=== PATIENT | male | born 1955 | race Caucasian/White ===

== ENCOUNTER → 2017-02-02 | Outpatient (REF) | payer OTHER | LOC: M LAB REF 17:22 | PROVIDERS: ATTEND Surgery | DX: D48.5 Neoplasm of uncertain behavior of skin (principal) ==

== ENCOUNTER → 2017-09-22 | Outpatient (CLI) | payer OTHER | LOC: M RAD 13:35 | DX: I87.311 Chronic venous hypertension (idiopathic) with ulcer of right lower extremity (principal) | CPT/HCPCS: 93971 ==

== ENCOUNTER → 2018-02-08 | Outpatient (CLI) | payer OTHER ==
[2018-02-08 12:06] LABS: HEMATOCRIT 44.3 % (42.0-52.0); HEMOGLOBIN 14.7 g/dl (13.5-17.5); MEAN CORPUSCULAR HEMOGLOBIN 29.6 pg (27.0-33.0); MEAN CORPUSCULAR HGB CONC 33.2 g/dl (32.0-36.5); MEAN CORPUSCULAR VOLUME 89.1 fl (80.0-96.0); PLATELET COUNT, AUTOMATED 234 10^3/uL (150-450); RED BLOOD COUNT 4.97 10^6/uL (4.30-6.10); RED CELL DISTRIBUTION WIDTH 13.3 % (11.5-14.5); WHITE BLOOD COUNT 7.8 10^3/uL (4.0-10.0)
[2018-02-08 12:17] LABS: PROTHROMBIN TIME 13.3 SECONDS (12.1-14.4)
[2018-02-08 12:34] LABS: ERYTHROCYTE SEDIMENTATION RATE 9 mm/hr (0-20)
[2018-02-08 13:42] LABS: ALBUMIN/GLOBULIN RATIO 1.11 (1.00-1.93); ALKALINE PHOSPHATASE 71 U/L (45-117); ALT/SGPT 40 U/L (12-78); ANION GAP 9 MEQ/L (8-16); AST/SGOT 22 U/L (7-37); BILIRUBIN,TOTAL 0.6 MG/DL (0.2-1.0); BLOOD UREA NITROGEN 23 MG/DL (7-18); CALCIUM LEVEL 8.5 MG/DL (8.8-10.2); CARBON DIOXIDE LEVEL 25 MEQ/L (21-32); CHLORIDE LEVEL 105 MEQ/L (98-107); CREATININE FOR GFR 0.95 MG/DL (0.70-1.30); GLOMERULAR FILTRATION RATE > 60.0 (>49); GLUCOSE, FASTING 131 MG/DL (70-100); POTASSIUM SERUM 4.5 MEQ/L (3.5-5.1); SODIUM LEVEL 139 MEQ/L (136-145); TOTAL PROTEIN 7.6 GM/DL (6.4-8.2)
== END ==
LOC: M LAB 11:23
DX: Z01.818 Encounter for other preprocedural examination (principal); M17.11 Unilateral primary osteoarthritis, right knee; R73.03 Prediabetes; M51.34 Other intervertebral disc degeneration, thoracic region; J84.10 Pulmonary fibrosis, unspecified
CPT/HCPCS: 71046

== ENCOUNTER 2018-03-15 07:30 | Inpatient (IN) | payer OTHER ==
--- NOTE | 2018-03-07 16:12 | HPE ---
DATE OF ADMISSION: 03/15/2017 CHIEF COMPLAINT: Right knee pain. HISTORY OF PRESENT ILLNESS: This is a pleasant 62-year-old male with progressively worsening right knee pain and stiffness. He has failed to improve with conservative treatment. He has elected for surgery for his continued symptoms. He has pain with weightbearing activities and his activities of daily living. X-rays of his knee are notable for advanced osteoarthritis of the right knee joint. He has consented for a right total knee arthroplasty by Dr. Angelo Mondragon. Medical optimization was performed by Dr. Ramirez's office. ALLERGIES: None. CURRENT MEDICATIONS: - lisinopril/HCTZ 20/12.5 once a day - amlodipine 5 mg a day - metformin 500 mg once a day PAST MEDICAL HISTORY: Includes hypertension and prediabetes. PAST SURGICAL HISTORY: Includes a right hip resurfacing [place] [address] Davidson. 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 He does not smoke or drink alcohol. FAMILY HISTORY: Noncontributory. REVIEW OF SYSTEMS: This patient denies chest pain, heart palpitations, cough, wheezing, difficulty breathing and shortness of breath. He denies abdominal pain, nausea, vomiting, diarrhea or constipation. He denies recent upper respiratory infection or urinary tract infection symptoms. He does complain of persistent pain in the right knee and pain with weightbearing activities in the right knee. PHYSICAL EXAMINATION: GENERAL: He is a well-nourished, well-developed, in no acute distress, alert male. He ambulates with a mild limp favoring the right lower extremity. He is not using assistive devices. VITAL SIGNS: He is 71-1/4 inches tall. He weighs 349.4 pounds with a temperature of 97.8, blood pressure 132/68, pulse 66 and respirations of 12. NECK: Supple without adenopathy or jugular venous distension. There were no carotid bruits appreciated upon auscultation. LUNGS: Clear to auscultation without rales or wheeze throughout. HEART: Regular rate and rhythm. ABDOMEN: Bowel sounds were present. EXTREMITIES: Examination of the knee revealed intact skin. He had decreased range of motion secondary to pain and stiffness. The limb was neurovascularly intact. LABORATORY DATA: Chest x-ray showed old granulomatous changes with no acute cardiopulmonary disease processes. EKG showed sinus rhythm at 71 beats per minute. Prothrombin time was 13.3, INR 1.00. CBC was within normal limits. Glucose 131, BUN 23, creatinine 0.95, sodium 139, potassium 4.5. IMPRESSION: Symptomatic osteoarthritis of the right knee joint. PLAN: Consented for a right total knee arthroplasty by Dr. Angelo Mondragon.
[~2018-03-15] VITALS: Ht 182.9 cm; Wt 158.3 kg
[~2018-03-15 07:30] MED LIST: AMLO10TA5 PO; AMLO5TAB6 PO; LISI10TA2 PO; LISI10TA4 PO; METF500T13 PO
--- NOTE | 2018-04-11 14:24 | HPE ---
DATE OF ADMISSION: 04/12/2018 CHIEF COMPLAINT: Right knee pain. HISTORY OF PRESENT ILLNESS: Earl is a pleasant, 62-year-old male with progressively worsening right knee pain and stiffness. He has failed to improve with conservative treatment. He has elected for surgery for his continued symptoms. He has pain with weightbearing activities and his activities of daily living. X-rays of his knee are notable for advanced osteoarthritis of the right knee joint. He has consented for a right total knee arthroplasty by Dr. Angelo Mondragon. Medical optimization was performed by Dr. Ramirez's office. ALLERGIES: None. CURRENT MEDICATIONS: - lisinopril/HCTZ 40 mg/25 mg once a day - amlodipine 5 mg once a day - metformin 500 mg one tablet twice a day PAST MEDICAL HISTORY: Includes diabetes and hypertension. PAST SURGICAL HISTORY: Includes right hip resurfacing in 2005. 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 FAMILY HISTORY: Noncontributory. REVIEW OF SYSTEMS: This patient denies chest pain, heart palpitations, cough, wheezing, difficulty breathing and shortness of breath. He denies abdominal pain, nausea, vomiting, diarrhea or constipation. He denies recent upper respiratory infection or urinary tract infection symptoms. He does complain of persistent pain in the right knee. PHYSICAL EXAMINATION: General: He is a well-nourished, well-developed in no acute distress, alert male patient who walks with a moderate limp favoring the right lower extremity. He does not use assistive devices. Vital signs: He is 5 foot 10 inches, weighs 341.2 pounds with a temperature of 97.2, blood pressure 140/86, pulse of 80, respirations of 16. Neck was supple without adenopathy or jugular venous distension. There were no carotid bruits appreciated upon auscultation. Lungs were clear to auscultation without rales or wheeze throughout. Heart: Regular rate and rhythm. Abdomen: Bowel sounds were present. Extremities: Examination of the knee revealed intact skin. He had decreased range of motion secondary to pain and stiffness. The limb was neurovascularly intact. LABORATORY DATA: EKG showed sinus rhythm at 71 beats per minute. Chest x-ray showed old granulomatous changes but no acute or active disease. Prothrombin time 13.3, INR 1.00. CBC within normal limits. Sedimentation rate 9, glucose 131, BUN 23, creatinine 0.95, sodium 139, potassium 4.5. IMPRESSION: Symptomatic osteoarthritis of the right knee joint. PLAN: Consented for a right total knee arthroplasty by Dr. Angelo Mondragon.
[2018-04-12] MEDS ORDERED: LIDOCAINE 1% MDV 20ML VIAL SQ PRN (06:00)
[2018-04-12] MEDS ORDERED: ACETAMINOPHEN 500 MG TAB PO ONE (07:00)
[2018-04-12] MEDS ORDERED: LR 1,000 ML IV ONE (07:00)
[2018-04-12] MEDS ORDERED: ceFAZolin SOD 1 GM in D5W MINI-BAG PLUS 50 ML IV ONE (07:40)
[2018-04-12] MEDS ORDERED: ceFAZolin 1GM INJ (J0690 PER 500MG) As Ordered ONE ×2 (11:01→15:08)
[2018-04-12] MEDS ORDERED: dexameTHASONE 4 MG/ML 1ML VIAL (J1100) As Ordered ONE (13:30)
[2018-04-12] MEDS ORDERED: ONDANSETRON 4MG/2ML VIAL (J2405) As Ordered ONE (13:30)
[2018-04-12] MEDS ORDERED: MIDAZOLAM INJ 2 MG/2 ML VIAL (J2250) As Ordered ONE ×2 (13:32→13:34)
[2018-04-12] MEDS ORDERED: PROPOFOL 500 MG/50 ML VIAL As Ordered ONE (13:32)
[2018-04-12] MEDS ORDERED: LIDOCAINE 2% INJ 100 MG/5 ML SDV (FOR ANES.) As Ordered ONE (13:32)
[2018-04-12] MEDS ORDERED: fentaNYL 100 MCG/2 ML INJECTION (J3010) As Ordered ONE (13:34)
[2018-04-12] MEDS ORDERED: BUPIVACAINE HCL 0.25% 30 ML VIAL As Ordered ONE ×2 (13:44→15:08)
[2018-04-12] MEDS ORDERED: BUPIVACAINE HCL 0.25% 10 ML VIAL As Ordered ONE (13:44)
[2018-04-12] MEDS: fentaNYL 100 MCG/2 ML INJECTION (J3010) IV SCH ×2 (13:49→13:57)
[2018-04-12] MEDS: MIDAZOLAM INJ 2 MG/2 ML VIAL (J2250) IV SCH ×3 (13:49→14:18)
[2018-04-12] MEDS ORDERED: EPINEPHrine INJ 1 MG/ML 1ML AMP As Ordered ONE (15:08)
[2018-04-12] MEDS ORDERED: TRANEXAMIC ACID 100 MG/ML 10ML VIAL As Ordered ONE (15:08)
[2018-04-12] MEDS ORDERED: BUPIVACAINE LIPOSOME/PF 1.3% 20ML VIAL (13.3MG/ML)(EXPAREL)(C9290 PER1MG) As Ordered ONE (15:08)
[2018-04-12] MEDS ORDERED: fentaNYL 250 MCG/5 ML INJECTION (J3010) As Ordered ONE (15:49)
[2018-04-12] MEDS ORDERED: ROCURONIUM BROMIDE 50 MG/5 ML VIAL As Ordered ONE (16:49)
[2018-04-12] MEDS ORDERED: GLYCOPYRROLATE INJ 0.2 MG/ML 2 ML VIAL As Ordered ONE (17:14)
[2018-04-12] MEDS ORDERED: NEOSTIGMINE 10 MG/10 ML VIAL (J2710) As Ordered ONE (17:14)
[2018-04-12] MEDS ORDERED: FLEET ENEMA PR PRN (18:30)
[2018-04-12] MEDS ORDERED: HYDROMORPHONE HCL 0.5 MG/ 0.5 ML SYRINGE (J1170 PER 1) IV PRN (18:30)
[2018-04-12] MEDS: PERCOCET 5MG/325MG TAB PO PRN ×2 (18:30→19:22)
[2018-04-12] MEDS ORDERED: ACETAMINOPHEN TAB 650MG DOSE (2X325MG) PO PRN (18:30)
[2018-04-12] MEDS ORDERED: MEPERIDINE INJ 25 MG/ML VIAL (J2175) IV PRN (18:30)
[2018-04-12] MEDS: fentaNYL 100 MCG/2 ML INJECTION (J3010) IV PRN ×8 (18:30→19:53)
[2018-04-12] MEDS ORDERED: METOCLOPRAMIDE INJ 10MG/2ML VIAL (J2765) IV PRN (18:30)
[2018-04-12] MEDS ORDERED: LR 1,000 ML IV SCH ×2 (18:30)
[2018-04-12] MEDS ORDERED: ONDANSETRON 4MG/2ML VIAL (J2405) IV PRN (18:30)
--- NOTE | 2018-04-12 19:25 | REP ---
RIGHT KNEE, TWO VIEWS: Two views of the right knee are performed. There is a total knee prosthesis in good position. Osseous structures are intact and well aligned. Metallic skin codi are seen anteriorly. Electronically Signed by Rufus Aguilar MD 04/12/2018 08:24 P
[2018-04-12 20:15] VITALS: BP 172/81
[2018-04-12 20:45] VITALS: BP 169/97
--- NOTE | 2018-04-12 21:18 | CR ---
DATE OF CONSULTATION: 04/12/2018 This is a 62-year-old male with a past medical history of hypertension and diabetes, history of right knee osteoarthritis who presents to this hospitalization for right total knee replacement which was done today by Dr. Mondragon. Reason for medical consultation is postoperative medical management. Patient is doing well at this time and denies any chest pain, shortness of breath, abdominal pain, nausea, vomiting or headache. PAST MEDICAL HISTORY: Hypertension and diabetes. PAST SURGICAL HISTORY: Right hip resurfacing in 2005. He has no known drug allergies. FAMILY HISTORY: Noncontributory. SOCIAL HISTORY: Patient denies any tobacco, alcohol or illicit drugs. MEDICATIONS AT HOME: Amlodipine 5 mg orally daily, lisinopril/hydrochlorothiazide 10/12.5 one tab orally daily, Metformin 500 mg orally daily. REVIEW OF SYSTEMS: Negative for all 10 major systems except for what was mentioned in the HPI. VITALS: Blood pressure 168/95, heart rate 78 and regular, respiratory rate 16, temperature 98.2, oxygen saturation 93% on 3 liters nasal cannula. Head is atraumatic, normocephalic. Neck is supple with no JVD. Lungs are clear to auscultation S1, S2 audible. No murmurs appreciated. Abdomen is soft and positive bowel sounds. No pedal edema. Neurologic examination, patient is awake and alert times three. LABS: There are no labs to address at this time. IMPRESSION: 1. Right total knee replacement. 2. Hypertension. 3. Diabetes. PLAN: At this time the patient has no need for acute medical intervention. His blood pressure is elevated but he did not take his blood pressure medications today so recommendation will be administer his blood pressure medications at this time and his diet order and his pain management I will defer to orthopedics. Recommend CBC and a BMP in the morning and will continue following his care alongside orthopedics. Patient is pain free at this time.
[2018-04-12 21:45] VITALS: BP 174/84
[2018-04-12 22:45] VITALS: BP 135/76
[2018-04-12] MEDS: ceFAZolin SOD 1 GM in D5W MINI-BAG PLUS 50 ML IV SCH (23:17)
[2018-04-12 23:45] VITALS: BP 161/76
[2018-04-13] MEDS: HYDROMORPHONE HCL 0.5 MG/ 0.5 ML SYRINGE (J1170 PER 1) IV PRN ×2 (01:37→05:22)
[2018-04-13 02:00] VITALS: BP 146/83
[2018-04-13] MEDS: ceFAZolin SOD 1 GM in D5W MINI-BAG PLUS 50 ML IV SCH ×2 (05:22→10:20)
[2018-04-13 06:00] VITALS: BP 164/98
[2018-04-13 06:54] LABS: BASO % 0.2 % (0.0-1.0); EOS % 0.2 % (0.0-3.0); HEMATOCRIT 35.8 % (42.0-52.0); LYMPH # 1.9 10^3/uL (1.5-4.5); LYMPH % 15.4 % (24.0-44.0); MEAN CORPUSCULAR HEMOGLOBIN 29.8 pg (27.0-33.0); MEAN CORPUSCULAR HGB CONC 33.5 g/dl (32.0-36.5); MEAN CORPUSCULAR VOLUME 88.8 fl (80.0-96.0); MONO # 1.1 10^3/uL (0.0-0.8); MONO % 8.4 % (0.0-5.0); NEUTROPHILS # 9.4 10^3/uL (1.8-7.7); NEUTROPHILS % 75.5 % (36.0-66.0); PLATELET COUNT, AUTOMATED 234 10^3/uL (150-450); RED BLOOD COUNT 4.03 10^6/uL (4.30-6.10); WHITE BLOOD COUNT 12.4 10^3/uL (4.0-10.0)
[2018-04-13 07:22] LABS: BLOOD UREA NITROGEN 17 MG/DL (7-18); CALCIUM LEVEL 7.8 MG/DL (8.8-10.2); CARBON DIOXIDE LEVEL 26 MEQ/L (21-32); CHLORIDE LEVEL 102 MEQ/L (98-107); CREATININE FOR GFR 0.97 MG/DL (0.70-1.30); GLOMERULAR FILTRATION RATE > 60.0 (>49); GLUCOSE, FASTING 178 MG/DL (70-100); POTASSIUM SERUM 4.2 MEQ/L (3.5-5.1); SODIUM LEVEL 134 MEQ/L (136-145)
[2018-04-13] MEDS ORDERED: metFORMIN (GLUCOPHAGE) 500 MG TAB PO SCH (08:00)
[2018-04-13 08:23] VITALS: BP 164/98
[2018-04-13] MEDS: PERCOCET 5MG/325MG TAB PO PRN ×2 (08:24→14:50)
[2018-04-13] MEDS ORDERED: XARE10TA PO (08:30)
[2018-04-13] MEDS ORDERED: PERC5TAB12 PO (08:30)
[2018-04-13] MEDS ORDERED: LISINOPRIL 10 MG TAB PO SCH (09:00)
[2018-04-13] MEDS ORDERED: MOM 30ML SUSPENSION UDC PO SCH (09:00)
[2018-04-13] MEDS ORDERED: hydroCHLOROthiazide 12.5 MG CAPSULE PO SCH (09:00)
[2018-04-13] MEDS ORDERED: MIRALAX *UNIT DOSE* 17GM PACKET PO SCH (09:00)
[2018-04-13] MEDS ORDERED: SENOKOT S TAB PO SCH (09:00)
[2018-04-13] MEDS ORDERED: amLODIPine 5 MG TAB PO SCH (09:00)
[2018-04-13 14:00] VITALS: BP 158/78
[2018-04-13] MEDS ORDERED: RIVAROXABAN 10 MG TAB (XARELTO) PO SCH (18:00)
--- NOTE | 2018-04-14 17:03 | RO ---
DATE OF PROCEDURE: 04/12/2018 PREPROCEDURE DIAGNOSIS: Right knee severe degenerative arthritis. POSTPROCEDURE DIAGNOSIS: Right knee severe degenerative arthritis. OPERATIVE PROCEDURE: Right total knee arthroplasty using a size 7 cruciate retaining cemented femoral component with a size 8 tibial tray and a 6 mm rotating platform polyethylene insert, 41 mm polyethylene button. All components were cemented. Prosthesis made by [employer]. It was an Attune knee. SURGEON: Josh Mondragon MD CHILD ADOLESCENT CARE: DARIAN Arrieta ANESTHESIA: Right femoral nerve block and then a general endotracheal tube anesthetic. COMPLICATIONS: None. ESTIMATED BLOOD LOSS: 20 mL SPECIMENS: Joint surface. DESCRIPTION OF PROCEDURE: Antibiotics were given intravenously preoperatively and a successful right femoral nerve block anesthetic was established, then an attempted spinal was tried, but then I elected to go with general endotracheal tube anesthetic. A tourniquet was placed right upper thigh and not inflated. The right lower extremity was carefully prepped and draped in the usual sterile fashion and elevated. After appropriate time-out the tourniquet was inflated to 275 mmHg. Longitudinal incision was made for a medial parapatellar approach to the knee. Bovie cautery was used to coagulate the crossing vessels. Subperiosteal dissection around the proximal, medial and lateral tibial plateau was performed. Large loose bodies were removed at this point. Synovectomy performed at the anterior aspect of the distal femur and then we everted the patella and flexed the knee, placed the drill down the center of the femoral canal, followed by the intramedullary caty and distal femoral cutting jig set at a 5 degree valgus cut for a right knee. We took an additional 2 mm because he had a significant flexion contracture. The distal femoral cut was then performed and the AP sizing jig was applied, measured for a size 7. The 3 degree external rotation was dialed in and a pin was placed, four-in-one block applied. Then the anterior posterior chamfer cuts performed taking great care to protect the surrounding soft tissues. We then used the jig for the notchplasty and then exposed the proximal tibia. Used the extramedullary alignment jig to estimate being parallel to the mechanical axis referencing off the medial tibia condyle. The block was pinned into position. Secondary check of the extramedullary caty confirmed we appeared to be parallel to the mechanical axis and then the proximal tibial osteotomy was then performed. . Laminar docket specialist was then placed laterally and we performed a completion medial meniscectomy with debridement of a large posterior medial osteophytes. We then placed the laminar docket specialist medially and performed a completion lateral meniscectomy with debridement of the large posterolateral osteophytes. The spacer blocks were then applied and the 6 mm seemed to fit the best with good stability, with good symmetry in the flexion and extension gaps. We then exposed the proximal tibia, sized for a size #8 tray which was pinned into position followed by the reamer and broach, trial 6 mm polyethylene was applied, followed by the size 7 femoral component and then the knee was brought into extension, the patella everted and patellar osteotomy performed and lug holes drilled after sizing for a 41 button. The trial was applied and the patellofemoral tracking was anatomic. We then drilled the lug holes for the femur and removed all the trial components, copiously pulsatile lavage irrigated out the knee joint and placed Exparel in the subperiosteal tissues around the distal femur and the proximal tibia. Then Mr. Daniels mixed the cement on the back table as I prepared the bony surfaces for cementing with a copious amount of pulsatile lavage irrigant solution. Mr. Daniels was also critical to the success of this very difficult operation in this morbidly obese patient with a high BMI, helping with manipulating the knee, helping to apply appropriate soft tissue retraction so I could perform the operation smoothly and efficiently and safely. He also helped close the wound, prepare the patient, otherwise. Once the cement was mixed, we then cemented the tibial tray, removed excess cement, and placed the polyethylene. Cemented the femoral component, removed excess cement and brought the knee into extension. Cemented the patellar button, removed excess cement and held it with a clamp with the knee in extension until the cement had hardened. At this point we then copiously pulsatile lavage irrigated out the knee joint once again as we were waiting for the cement to harden. We then placed Tranexamic acid in the knee, then closed the apex of the arthrotomy with two #1 PDS sutures, and one at the medial parapatellar areas, then a running double arm #1 Stratafix was used to close the capsule. Then the tourniquet was released. We irrigated between layers and then closed the deep subdermal tissues with interrupted #2-0 PDS sutures, skin was closed with saples, covered by a Optifoam dressing and dry sterile bulky dressing. Then, he was awakened from general endotracheal anesthesia after having tolerated the procedure well and transferred to the recovery room in stable condition. There were no intraoperative complications.
--- NOTE | 2018-04-18 16:22 | DSES ---
DATE OF ADMISSION: 04/12/2018 DATE OF DISCHARGE: 04/13/2018 ATTENDING PHYSICIAN: Dr. Mondragon ADMISSION DIAGNOSIS: Right knee severe degenerative arthritis. OTHER DIAGNOSES: 1. Diabetes. 2. Hypertension. DISCHARGE DIAGNOSIS: Right knee severe degenerative arthritis, status post right total knee arthroplasty. HISTORY: The patient is a 62-year-old male that had progressively worsening right knee pain and stiffness. He failed to improve with conservative measures. He continued to have symptoms with weightbearing activities and activities of daily living. He consented for an elective right total knee arthroplasty with Dr. Mondragon for his continued symptoms. OPERATION PERFORMED: Right total knee arthroplasty. HOSPITAL COURSE: The patient underwent a right total knee arthroplasty with a right femoral nerve block and general anesthesia. Surgery was uneventful and his hospital course was without complication. He was up with physical therapy per their protocol, weightbearing as tolerated on the right lower extremity. The patient was discharged on oral pain medications and will resume his preoperative medications and diet. He will use his thromboembolic-deterrent stockings and take his anticoagulant as directed to prevent deep venous thrombosis. He will followup in our office in 12-14 days for a wound check and staple removal. He is encouraged to contact our office sooner if there is any increase in pain, drainage, redness, numbness or tingling in the extremity, fever greater than 101 degrees, or any other concerns. Please see the medical record for additional details.
== END 2018-04-13 15:50 | disposition home or self-care (01) | DRG 470 ==
LOC: M OR 04-12 10:27 → M MS5PR 04-12 20:43
PROVIDERS: ADMIT Orthopaedic Surgery; ATTEND Orthopaedic Surgery
PROC: 0SRC0J9 Replacement of Right Knee Joint with Synthetic Substitute, Cemented, Open Approach (ICD-10-PCS; principal; 2018-04-12 14:40)
DX: M17.11 Unilateral primary osteoarthritis, right knee (principal); Z68.42 Body mass index [BMI] 45.0-49.9, adult; I10 Essential (primary) hypertension; E66.01 Morbid (severe) obesity due to excess calories; G47.33 Obstructive sleep apnea (adult) (pediatric); E11.9 Type 2 diabetes mellitus without complications; Z79.84 Long term (current) use of oral hypoglycemic drugs; Z79.899 Other long term (current) drug therapy

== ENCOUNTER → 2018-03-16 | Outpatient (CLI) | payer OTHER ==
--- NOTE | 2018-03-21 15:38 | SLEEPCENT ---
DATE OF PROCEDURE: 03/16/2018 ORDERED BY: LIANA Montanez Nocturnal polysomnography was performed for evaluation of sleep physiology in this patient with a history of hypertension and diabetes. 7 hours and 35 minutes of data were reviewed. There were 266 minutes of sleep identified. Sleep latency was prolonged at 80 minutes. Rapid eye movement (REM) latency was prolonged at 177 minutes. Sleep architecture showed initial poor progression with fragmentation. There were two REM cycles noted. Overall sleep efficiency was 59%. The electrocardiogram showed a sinus rhythm with an average heart rate of 56 beats per minute. Rate ranged 45-80. EEG showed normal waveforms for awake and sleep stages. No focal events were identified. There were 132 respiratory events identified of 10 seconds in duration or greater for an apnea-hypopnea index of 29.7. The events were primarily obstructive, not exclusive to sleep stage nor body posture. Arousals from respiratory events occurred 4.5 times per hour and oxygen desaturations were seen into the 70s. There was some activity in the limb leads but arousals were few with two per hour. IMPRESSION: Severe obstructive sleep apnea syndrome (G47.33). Apnea-hypopnea index 29.7. RECOMMENDATIONS The patient should be encouraged to return to the sleep disorder center for pressure therapy. In the interim alcohol and sedative avoidance should be practiced and caution exercised during the operation of motor vehicles.
== END ==
LOC: M SLEEP 19:37
PROVIDERS: ATTEND Nurse Practitioner Family
DX: Z01.818 Encounter for other preprocedural examination (principal)

== ENCOUNTER → 2018-03-25 | Outpatient (CLI) | payer OTHER ==
[~2018-03-25] MED LIST changes: +PERC5TAB12 PO; +XARE10TA PO
--- NOTE | 2018-03-28 13:03 | SLEEPCENT ---
DATE OF STUDY: 03/25/2018 ORDERING PROVIDER: LIANA Montanez Nocturnal polysomnography was performed for the titration of pressure therapy in this patient with severe obstructive sleep apnea syndrome. Apnea-hypopnea index 29.7. For testing, the patient was fit with a ResMed AirFit F20 full face mask of large size. 4 cm of water pressure were applied to the circuit, and the lights were extinguished. 7 hours and 1 minute of data were reviewed. There were 105 minutes of sleep identified. Sleep latency was prolonged at 35 minutes. The patient did not achieve rapid eye movement (REM) sleep. Overall sleep efficiency was quite low at 25.4%. The patient remained awake from midnight to 1:30. Electrocardiogram (EKG) showed a sinus rhythm with an average heart rate of 60 beats per minute. Electroencephalogram (EEG) showed reasonably normal waveforms for awake and sleep. On review of the records, the patient was initially started on a nasal delivery device. After a few hours, was changed to full face mask, and best sleep was seen on continuous positive airway pressure (CPAP) at a pressure of +8, with which the patient was able to achieve stage II sleep with minimal snoring. No significant oxygen desaturation. Further titration became difficult, as the patient awoke at 2:30 and remained awake for the remainder of the time. Some limb activity was again noted. Arousals from limb events were more frequent on the study at 8 per hour. IMPRESSION: Obstructive sleep apnea syndrome (G47.33). RECOMMENDATION: Initiation of pressure therapy at 8 cm of water delivered via full face mask may be reasonable. However, given the difficulty with titration, close clinical followup will be necessary, and repeat titration may be needed once the patient has an opportunity to accommodate to the device. MTDD
== END ==
LOC: M SLEEP 20:00
PROVIDERS: ATTEND Nurse Practitioner Family
DX: G47.33 Obstructive sleep apnea (adult) (pediatric) (principal)

== ENCOUNTER → 2018-06-21 | Outpatient (CLI) | payer OTHER ==
[2018-06-21 11:42] LABS: HEMATOCRIT 40.2 % (42.0-52.0); HEMOGLOBIN 13.4 g/dl (13.5-17.5); MEAN CORPUSCULAR HEMOGLOBIN 29.8 pg (27.0-33.0); MEAN CORPUSCULAR HGB CONC 33.3 g/dl (32.0-36.5); MEAN CORPUSCULAR VOLUME 89.5 fl (80.0-96.0); PLATELET COUNT, AUTOMATED 232 10^3/uL (150-450); RED BLOOD COUNT 4.49 10^6/uL (4.30-6.10); WHITE BLOOD COUNT 6.6 10^3/uL (4.0-10.0)
[2018-06-21 11:52] LABS: INR 1.08; PROTHROMBIN TIME 14.1 SECONDS (12.1-14.4)
--- NOTE | 2018-06-21 11:54 | REP ---
Chest two views HISTORY: Preop Comparison: 02/08/2018 Calcified granuloma are present in the right upper and left lower lobes. The heart is normal in size. The pulmonary vasculature is normal in appearance. Degenerative change is present in the thoracic spine. IMPRESSION: Old granulomatous disease. Electronically Signed by Alber Alexis MD 06/21/2018 11:46 A
[2018-06-21 12:02] LABS: ERYTHROCYTE SEDIMENTATION RATE 11 mm/hr (0-20)
[2018-06-21 12:30] LABS: ALBUMIN 3.8 GM/DL (3.2-5.2); ALT/SGPT 36 U/L (12-78); BILIRUBIN,TOTAL 0.4 MG/DL (0.2-1.0); BLOOD UREA NITROGEN 17 MG/DL (7-18); CALCIUM LEVEL 8.7 MG/DL (8.8-10.2); CARBON DIOXIDE LEVEL 24 MEQ/L (21-32); CHLORIDE LEVEL 105 MEQ/L (98-107); CREATININE FOR GFR 1.06 MG/DL (0.70-1.30); GLOMERULAR FILTRATION RATE > 60.0 (>49); GLUCOSE, FASTING 155 MG/DL (70-100); POTASSIUM SERUM 4.3 MEQ/L (3.5-5.1); SODIUM LEVEL 139 MEQ/L (136-145); TOTAL PROTEIN 7.3 GM/DL (6.4-8.2)
--- NOTE | 2018-06-22 00:43 | ECGEPIP ---
Stationary ECG Study [facility] Test Date: 2018-06-21 Pat Name: KAILEY PEMBERTON Department: Room: - Gender: M Intermediate Designer: : [id number] Requested By: Josh Stephens Order Number: [id number] Reading MD: Gus Bender Measurements Intervals [place] Rate: 78 P: 35 MI: 195 QRS: -18 QRSD: 98 T: 62 QT: 389 QTc: 446 Interpretive Statements SINUS RHYTHM Low QRS complex voltage in the limb leads Inferior Q waves of uncertain significance Electronically Signed On 06-22-2018 0:42:51 EDT by Gus Bender
== END ==
LOC: M LAB 10:58
PROVIDERS: ATTEND Orthopaedic Surgery
DX: J84.10 Pulmonary fibrosis, unspecified (principal); M17.12 Unilateral primary osteoarthritis, left knee; Z01.812 Encounter for preprocedural laboratory examination

== ENCOUNTER 2018-07-07 10:30 | Inpatient (IN) | payer OTHER ==
--- NOTE | 2018-07-03 12:49 | HPE ---
DATE OF ADMISSION: 07/07/2018 ATTENDING PHYSICIAN: Dr. Josh Mondragon HISTORY OF PRESENT ILLNESS: This is a pleasant male with continuing symptomatic left knee osteoarthritis. He has consented for a left total knee arthroplasty per Dr. Angelo Mondragon. Medical optimization was completed with Dr. Ramirez. Per patient, he was cleared, although I am awaiting official documentation. X-rays are consistent with advanced osteoarthritis. ALLERGIES: None known to drugs. MEDICATIONS (List includes): - lisinopril 40 mg - amlodipine besylate 10 mg - metformin HCl 500 mg - oxycodone/acetaminophen 5/325 MEDICAL PROBLEM LIST (Includes): 1. Essential hypertension. 2. Symptomatic left total knee arthroplasty. PAST SURGICAL HISTORY: 1. Right hip resurfacing procedure. 2. Right total knee arthroplasty, date of surgery 04/12/2018. SOCIAL HISTORY: Denies smoking, ethanol intake or illicit drugs. FAMILY HISTORY: Noncontributory. REVIEW OF SYSTEMS: Denies chest pain, shortness of breath, dyspnea on exertion, fever, chills, malaise, upper respiratory or urinary tract symptoms. LABS: Reviewed. Hemoglobin 13.4. Hematocrit 40.2. Glucose 155. Calcium 8.7 as acquired on 06/21/2018. EKG read by Dr. Gus Bender showed sinus rhythm. Chest x-ray, service date 06/21/2018, showed old granulomatous disease as read by Dr. Alexis. PHYSICAL EXAMINATION: Vitals: Blood pressure (BP) 132/68. Pulse 66. Temperature 97.8. Height 71.25. Weight 349 pounds 4 ounces. Body mass index (BMI) 48.4. Respirations 12. The patient is ambulating without overt antalgia assistance favoring. Left knee is not effused, ecchymotic or erythematous and benign, noninfectious looking. Bilateral lower extremity skin is intact, benign, noninfectious looking. Compartments are supple, soft, nontender to palpation and grossly intact to light touch. Left hip range of motion is not irritable or limited due to internal and external range of motion. Abdomen soft, nontender times four. Chest rises symmetrically. Regular rate and rhythm. Lungs: Clear to auscultation. Neck: Supple. Negative jugular venous distention (JVD) or bruits. Normocephalic. IMPRESSION: 1. Left knee symptomatic tricompartmental osteoarthritis. 2. Patient consented for a left total knee arthroplasty per Dr. Angelo Mondragon. 3. Medical optimization performed by Dr. Ramirez, which we are still awaiting documented clearance. 4. On-call to operating room (OR), 2 grams IV Kefzol in OR. 5. Sequential compression device (SCD) and thromboembolic deterrent stockings (TEDS) in OR.
[~2018-07-07] VITALS: Ht 182.9 cm; Wt 151.2 kg
[~2018-07-07 10:30] MED LIST changes: +ACETAMINOPHEN 500 MG TAB PO ONE; +LIDOCAINE 1% MDV 20ML VIAL SQ PRN; +LR 1,000 ML IV ONE
[2018-07-07] MEDS ORDERED: MIDAZOLAM INJ 2 MG/2 ML VIAL (J2250) As Ordered ONE ×2 (12:10→13:21)
[2018-07-07] MEDS ORDERED: fentaNYL 100 MCG/2 ML INJECTION (J3010) As Ordered ONE (12:10)
[2018-07-07] MEDS ORDERED: PROPOFOL 200 MG/20 ML VIAL As Ordered ONE (13:09)
[2018-07-07] MEDS ORDERED: fentaNYL 250 MCG/5 ML INJECTION (J3010) As Ordered ONE (13:10)
[2018-07-07] MEDS ORDERED: ROCURONIUM BROMIDE 50 MG/5 ML VIAL As Ordered ONE ×2 (13:10→15:08)
[2018-07-07] MEDS ORDERED: LIDOCAINE 2% INJ 100 MG/5 ML SDV (FOR ANES.) As Ordered ONE (13:10)
[2018-07-07] MEDS ORDERED: ONDANSETRON 4MG/2ML VIAL (J2405) As Ordered ONE (13:11)
[2018-07-07] MEDS ORDERED: dexameTHASONE 4 MG/ML 1ML VIAL (J1100) As Ordered ONE (13:11)
[2018-07-07] MEDS ORDERED: MIDAZOLAM INJ 2 MG/2 ML VIAL (J2250) IV ONE (13:15)
[2018-07-07] MEDS ORDERED: fentaNYL 100 MCG/2 ML INJECTION (J3010) IV ONE (13:15)
[2018-07-07] MEDS ORDERED: NEOSTIGMINE 10 MG/10 ML VIAL (J2710) As Ordered ONE ×2 (13:21→14:51)
[2018-07-07] MEDS ORDERED: GLYCOPYRROLATE INJ 0.2 MG/ML 2 ML VIAL As Ordered ONE ×2 (13:22→14:51)
[2018-07-07] MEDS ORDERED: BUPIVACAINE HCL 0.25% 10 ML VIAL As Ordered ONE (13:24)
[2018-07-07] MEDS ORDERED: ceFAZolin 1GM INJ (J0690 PER 500MG) As Ordered ONE (13:24)
[2018-07-07] MEDS ORDERED: TRANEXAMIC ACID 100 MG/ML 10ML VIAL As Ordered ONE (13:24)
[2018-07-07] MEDS ORDERED: EPINEPHrine INJ 1 MG/ML 1ML AMP As Ordered ONE (13:25)
[2018-07-07] MEDS ORDERED: BUPIVACAINE LIPOSOME/PF 1.3% 20ML VIAL (13.3MG/ML)(EXPAREL)(C9290 PER1MG) As Ordered ONE (13:25)
[2018-07-07] MEDS ORDERED: ePHEDrine SULFATE 25 MG/5 ML(5MG/ML) SYRINGE As Ordered ONE (14:19)
[2018-07-07] MEDS ORDERED: ACETAMINOPHEN 1000MG 100ML IV BTL (OFIRMEV) (J0131 PER 10MG) As Ordered ONE (14:51)
[2018-07-07] MEDS: PERCOCET 5MG/325MG TAB PO PRN ×2 (16:25→16:57)
[2018-07-07] MEDS ORDERED: fentaNYL 100 MCG/2 ML INJECTION (J3010) IV PRN (16:30)
[2018-07-07] MEDS ORDERED: HYDROMORPHONE HCL 0.5 MG/ 0.5 ML SYRINGE (J1170 PER 1) IV PRN (16:30)
[2018-07-07] MEDS ORDERED: FLEET ENEMA PR PRN (16:30)
[2018-07-07] MEDS ORDERED: ACETAMINOPHEN TAB 650MG DOSE (2X325MG) PO PRN (16:30)
[2018-07-07] MEDS ORDERED: ONDANSETRON 4MG/2ML VIAL (J2405) IV PRN (16:30)
[2018-07-07] MEDS ORDERED: LR 1,000 ML IV SCH (16:30)
[2018-07-07] MEDS ORDERED: MORPHINE 10 MG/ML 1ML VIAL (J2270) IV PRN (16:30)
--- NOTE | 2018-07-07 17:14 | CR.PDOC ---
General Date of Consultation: July 07, 2018 Referring Provider: Josh Mondragon Attending Physician: MONTY LEO MD Consultation REASON FOR CONSULTATION/CHIEF COMPLAINT: S/P left total knee arthroplasty per Dr. Mondragon HISTORY OF PRESENT ILLNESS: Patient is a 62-year-old white male with a past medical history significant for HTN, prediabetes and BENNY, who is status postop same day left total knee arthroplasty performed by Dr. Mondragon. The hospitalist team was consulted for medical management during patient's recovery. ALLERGIES: Please see below. HOME MEDICATIONS: Please see below. PAST MEDICAL HISTORY: 1. Essential hypertension 2. Prediabetes 3. Obstructive sleep apnea PAST SURGICAL HISTORY: 1. Right hip resurfacing procedure, 2005 2. Right total knee arthroplasty, 03/2018 FAMILY HISTORY: Father: , 88, colon cancer Mother: , 86, brain cancer SOCIAL HISTORY: Marital status and/or living arrangements: , lives Employment: water truck driver Tobacco use: Life-long nonsmoker ETOH: Rarely Illicit drug use: Patient denies any illicit drug use REVIEW OF SYSTEMS: CONSTITUTIONAL: Patient denies any recent history of subjective fevers, chills, night sweats, changes in weight or generalized fatigue HEENT: Patient denies any headache CARDIOVASCULAR: Patient denies chest pain, palpitations RESPIRATORY: Reports history of BENNY, with CPAP ,Patient denies difficulty breathing, shortness of breath, recent/ongoing cough or wheeze GENITOURINARY: Denies any dysuria, urgency, hesitancy MUSCULOSKELETAL: Patient reports 2 out of 10 left knee pain status post left total arthroplasty GASTROINTESTINAL: Denies nausea or vomiting, reflux, abdominal pain, diarrhea or constipation SKIN: Denies any new rashes or new/evolving skin lesions NEUROLOGICAL: Denies any focal neurologic deficit, no numbness or tingling PSYCHIATRIC: Denies clinical psychiatric history PHYSICAL EXAMINATION: VITAL SIGNS: Please see below. GENERAL APPEARANCE: Patient was interviewed and examined in the PACU. Patient was alert and oriented 3, in no acute distress, able to answer questions appropriately HEENT: Normocephalic, atraumatic, PERRLA, EOMI, good oral hygiene RESPIRATORY: Clear to auscultation bilaterally free of wheezes rales or rhonchi CARDIOVASCULAR: Regular rate and rhythm, normal S1-S2, ABDOMEN: Soft, nontender, bowel sounds present EXTREMITIES: Left lower extremity bandaged, ankle and foot exposed, good sensation and motor function distally NEUROLOGICAL: Strength 5 out of 5 in the upper extremity bilaterally and lower right extremity. No focal neurologic deficits. PSYCHIATRIC: Mood and affect are appropriate LABORATORY DATA: Please see below. ASSESSMENT/PLAN: Status post left total knee arthroplasty -Continue pain management per orthopedics -Advance diet per orthopedics Obstructive sleep apnea -Patient brought in his home CPAP -Continue on BENNY protocol Hypertension -Hold home lisinopril 40 mg -Continue Amlodipine 10 mg, hold for SBP <130 Pre-diabetes -Hold home metformin -SSI DVT Prophylaxis: Teds and Sequentials Vital Signs/I&O Vital Signs Date Time Temp Pulse Resp B/P (MAP) Pulse Ox O2 Delivery O2 Flow Rate FiO2 07/07/18 16:34 74 16 141/66 (91) 94 2 07/07/18 16:04 97.7 Laboratory Data CBC/BMP Laboratory Tests 07/07/18 10:48 Allergies Coded Allergies: No Known Allergies (Unverified , 06/19/18) Home Medications Scheduled Amlodipine Besylate (Amlodipine Besylate) 5 Mg Tab, 5 MG PO DAILY, (Reported) Lisinopril/Hydrochlorothiazide (Lisinopril-Hctz 10-12.5 mg Tab) 1 Tab Tab, 1 TAB PO DAILY, (Reported) Metformin HCl (Metformin HCl) 500 Mg Tab, 500 MG PO DAILY, (Reported) Attending Note Attending Note I have reviewed the residents note and have personally examined and interviewed the patient. I agree with the Residents physical examination and assessment and plan. SELENA QUINTANILLA DO July 07, 2018 17:13 MONTY LEO MD July 07, 2018 19:26
[2018-07-07 17:20] VITALS: BP 146/100
--- NOTE | 2018-07-07 17:29 | REP ---
Left knee: Three views. History: Postop. Findings: The patient is status post left knee arthroplasty. Femoral, tibial, and patellar arthroplasty components are well aligned with respect to each other and their [place] bones. Anterior skin codi are seen. Periarticular soft tissue emphysema and swelling is noted. Impression: Status post left knee arthroplasty. Electronically Signed by Jame Mireles MD 07/07/2018 08:05 P
[2018-07-07] MEDS: HumaLOG INSULIN (NovoLOG) PER UNIT SC SCH (17:30)
[2018-07-07 17:45] VITALS: BP 165/85
[2018-07-07] MEDS ORDERED: GLUCAGON FOR INJ 1 MG VIAL (J1610) SC PRN (17:45)
[2018-07-07] MEDS ORDERED: DEXTROSE 50% 50 ML SYRINGE IV PRN (17:45)
[2018-07-07] MEDS ORDERED: GLUCOSE 4 GM CHEW TABLET PO PRN (17:45)
[2018-07-07 18:45] VITALS: BP 153/91
[2018-07-07 19:45] VITALS: BP 151/76
[2018-07-07] MEDS: LR 1,000 ML IV SCH (20:30)
[2018-07-07] MEDS: HYDROMORPHONE HCL 0.5 MG/ 0.5 ML SYRINGE (J1170 PER 1) IV PRN ×2 (20:31→23:37)
[2018-07-07 20:45] VITALS: BP 143/73
[2018-07-07] MEDS ORDERED: HumaLOG INSULIN (NovoLOG) PER UNIT SC SCH (21:00)
[2018-07-07 21:45] VITALS: BP 145/68
[2018-07-08 02:00] VITALS: BP 130/71
[2018-07-08] MEDS: LR 1,000 ML IV SCH (05:00)
[2018-07-08] MEDS: HYDROMORPHONE HCL 0.5 MG/ 0.5 ML SYRINGE (J1170 PER 1) IV PRN (05:32)
[2018-07-08 06:00] VITALS: BP 136/68
[2018-07-08 06:52] LABS: HEMATOCRIT 37.7 % (42.0-52.0); HEMOGLOBIN 12.3 g/dl (13.5-17.5); MEAN CORPUSCULAR HEMOGLOBIN 29.4 pg (27.0-33.0); MEAN CORPUSCULAR HGB CONC 32.6 g/dl (32.0-36.5); PLATELET COUNT, AUTOMATED 234 10^3/uL (150-450); RED BLOOD COUNT 4.19 10^6/uL (4.30-6.10)
[2018-07-08 07:00] LABS: INR 1.07
[2018-07-08] MEDS ORDERED: XARE10TA PO (07:13)
[2018-07-08] MEDS ORDERED: HYDR-3713 PO (07:13)
[2018-07-08 07:17] LABS: BLOOD UREA NITROGEN 19 MG/DL (7-18); CALCIUM LEVEL 8.3 MG/DL (8.8-10.2); CARBON DIOXIDE LEVEL 26 MEQ/L (21-32); CHLORIDE LEVEL 103 MEQ/L (98-107); CREATININE FOR GFR 1.06 MG/DL (0.70-1.30); GLOMERULAR FILTRATION RATE > 60.0 (>49); GLUCOSE, FASTING 177 MG/DL (70-100); POTASSIUM SERUM 4.2 MEQ/L (3.5-5.1); SODIUM LEVEL 135 MEQ/L (136-145)
[2018-07-08] MEDS ORDERED: amLODIPine 5 MG TAB PO SCH (09:00)
[2018-07-08] MEDS ORDERED: MIRALAX *UNIT DOSE* 17GM PACKET PO SCH (09:00)
[2018-07-08] MEDS ORDERED: MOM 30ML SUSPENSION UDC PO SCH (09:00)
[2018-07-08 09:09] VITALS: BP 138/74
[2018-07-08] MEDS ORDERED: PERCOCET 5MG/325MG TAB PO PRN (09:45)
[2018-07-08] MEDS: HumaLOG INSULIN (NovoLOG) PER UNIT SC SCH ×3 (09:46→18:36)
[2018-07-08 10:00] VITALS: BP 140/67
[2018-07-08] MEDS: PERCOCET 5MG/325MG TAB PO PRN ×3 (10:19→18:40)
--- NOTE | 2018-07-08 11:13 | IPNPDOC ---
Text Note Date of Service The patient was seen on 07/08/18. NOTE SUBJECTIVE: Patient was interviewed and examined this morning in his hospital room. Patient reports no issues over night and adequate pain management. He denies any acute complaints. Patient has eaten, and urinated without difficulty. He has yet to have a bowel movement however, he reports that it is not uncommon to go a number of days in between. OBJECTIVE: VITALS: Please see below. EXAM: GENERAL APPEARANCE: Patient was alert and oriented 3, laying upright in bed, in no acute distress, able to answer questions appropriately HEENT: Normocephalic, atraumatic, PERRLA, EOMI, good oral hygiene RESPIRATORY: Clear to auscultation bilaterally free of wheezes rales or rhonchi CARDIOVASCULAR: Regular rate and rhythm, normal S1-S2, no murmurs ABDOMEN: Soft, nontender, bowel sounds present EXTREMITIES: Left lower extremity bandaged, ankle and foot exposed, good sensation and motor function distally, R extremity does not demonstrate swelling, calf tenderness or erythema. NEUROLOGICAL: Strength 5 out of 5 in the upper extremity bilaterally and lower right extremity. No focal neurologic deficits. PSYCHIATRIC: Mood and affect are appropriate LABORATORY: Please see below. IMAGING: Knee x-ray (07/07/18): Status post left knee arthroplasty ASSESSMENT: Patient is a 61-year-old white male, past medical history of HTN, prediabetes and BENNY, postoperative day #1 of left total knee arthroplasty performed by Dr. Mondragon on 07/07/18. Hospice team was consulted for medical management during patient's recovery. Overnight, patient's home lisinopril was held. Patient's amlodipine was given with holding parameters for SBP <130. Blood pressure this morning stable within the 130s/70s. Metformin held, patient placed on sliding scale insulin., PA-C glucose of 208 this morning. Patient utilized home CPAP machine last evening for his obstructive sleep apnea without any difficulty. Vital stable, morning labs do not indicate any serious abnormalities. Patient is able to be discharged home with appropriate pain management per orthopedics. PLAN: Status post left total knee arthroplasty -Pain management and outpatient follow-up per orthopedics Obstructive sleep apnea -BENNY protocol with CPAP last evening without issue Hypertension -Home lisinopril 40 mg was held last evening -Amlodipine 10 mg was continued with holding parameters for SBP <130 -Continue both Lisinopril and Amlodipine upon discharge. Pre-diabetes -Metformin held last evening. -SSI -Continue home metformin at discharge. DVT PROPHYLAXIS: Teds and Sequentials DISPOSITION: Discharged home with close orthopedic follow-up VS,Jasmyne, I+O VS, Fishbone, I+O Laboratory Tests 07/07/18 10:48 07/08/18 06:28 Red Blood Count 4.19 L, Mean Corpuscular Volume 90.0, Mean Corpuscular Hemoglobin 29.4, Mean Corpuscular Hemoglobin Concent 32.6, Red Cell Distribution Width 13.4, Calcium Level 8.3 L Vital Signs Date Time Temp Pulse Resp B/P (MAP) Pulse Ox O2 Delivery O2 Flow Rate FiO2 07/08/18 10:19 18 07/08/18 09:09 78 138/74 07/08/18 06:00 98.0 94 07/07/18 17:45 2.0 I&O- Last 24 Hours up to 6 AM 07/08/18 06:00 Intake Total 2430 ml Output Total 1050 ml Balance 1380 ml GME ATTESTATION GME ATTESTATION My faculty preceptor for this patient encounter was physically present during the encounter and was fully available. All aspects of the patient interview, examination, medical decision making process, and medical care plan development were reviewed and approved by the faculty preceptor. The faculty preceptor is aware and concurs with the plan as stated in the body of this note and will attest to such by his/her cosignature. SELENA QUINTANILLA DO July 08, 2018 11:13
--- NOTE | 2018-07-08 12:33 | RO ---
DATE OF PROCEDURE: 07/07/2018 PREPROCEDURE DIAGNOSIS: Left knee degenerative arthritis. POSTPROCEDURE DIAGNOSIS: Left knee degenerative arthritis. PROCEDURE: Left total knee arthroplasty using a size 8 cruciate retaining femoral component and a size 8 tibial tray with 6 mm rotating plate form polyethylene insert and a 41 mm polyethylene button. All components were cemented. Prosthesis is made by [employer]. It was an Att[employer] knee. SURGEON: Dr. Josh Mondragon. DEPUTY COURT CLERK: Mr. Jax Daniels PA-C. ANESTHESIA: Left femoral nerve block with a general endotracheal tube anesthetic. COMPLICATIONS: None. SPECIMENS: Joint surface. ESTIMATED BLOOD LOSS: 20 mL. DESCRIPTION OF PROCEDURE: Antibiotics were given intravenously preoperatively. He had a successful left femoral nerve block and then a general endotracheal tube anesthetic established. A tourniquet was in the left upper thigh and not inflated. Left lower extremity was carefully prepped and draped in the usual sterile fashion and elevated. After an appropriate time out the tourniquet was inflated. A longitudinal incision was made for medial parapatellar approach to the knee. Bovie cautery was used to coagulate the crossing vessels. Medial patellar arthrotomy was performed. Subperiosteal dissection around the proximal medial and lateral plateaus was performed. The patella was everted and then the knee was flexed. Anterior cruciate ligament (ACL) was debrided, drill placed down the center of the femoral canal. Intramedullary caty introduced with a distal femoral cutting jig set at 5 degree valgus cut for a left knee at 9 mm resection level. Block was pinned into position. Distal femoral cut performed. AP sizing jig measured for a size 8. 3 degrees external rotation for a left knee was dialed, pinned in place. 4-in-1 block applied. Anterior and posterior chamfer cuts were performed. The notchplasty jig was placed on the femur and the notchplasty performed. We then exposed the proximal tibia, used the extramedullary alignment jig to estimate being parallel to the mechanical access referencing off the medial tibial condyle at 4 mm resection level. The block was pinned into position. Secondary check with an extramedullary caty confirmed that we appeared to be parallel to the mechanical access. The proximal tibial osteotomy was thus performed, lamina collections clerk placed medially and we performed a completion lateral meniscectomy and debridement of posterolateral osteophytes and placed the lamina collections clerk laterally and performed a completion medial meniscectomy and debridement of the posterior medial osteophytes. The spacer blocked at 6 mm and actually fit quite well with good stability and symmetry in both flexion and in extension. We then exposed the proximal tibia, sized for a #8 tibial tray, which was pinned into position followed by the reamer and broach, followed by the trial femoral component. Brought the knee into extension, everted the patella and performed a patellar osteotomy. Sized for a 41 button, lug hole was drilled. The trial placed and the patellofemoral tracking was anatomic. We then drilled the lug holes for the femur. Removed all the trial components, copiously pulsatile, lavaged and irrigated off the knee joint. Then replaced Exparel in the subperiosteal tissues of the distal femur and the proximal tibia. Then Mr. Jax Daniels mixed the cement on the back tables. I prepared the bony surfaces for cementing with a copious amount of pulsatile lavage irrigant solution, dried them thoroughly. Mr. Jax Daniels was also critical to the success of this very difficult surgery because of the size of his leg but helping with appropriate soft tissue manipulation, helped with soft tissue retraction, helped to mix the cement and helped to close the wound amongst many other tasks allowing me to perform the operating smoothly, efficiently and safely. We the cemented the tibial tray, removed excess cement, placed the polyethylene. Then cemented the femoral component, removed excess cement and then brought the knee into extension. Everted the patella, cemented the patellar button and removed excess cement and held it with a clamp with the knee in extension till the cement hardened. As we were awaiting this, we copiously pulsatile lavaged, irrigated out the knee joint and instilled tranexamic acid. Then began closing the apex of the arthrotomy with two #1 PDS sutures, one medial parapatellar #1 PDS suture was placed and the capsule was closed with a double-armed running #1 Stratafix, then the tourniquet was released. We irrigated between layers. Closed the deep subdural and tissues with interrupted #2-0 PDS suture and the skin was closed with codi covered by an Optifoam dry sterile bulky dressing. He was then awakened from general endotracheal tube anesthesia after having tolerated the procedure well. Transferred to the recovery room in stable condition. There were no intraoperative complications.
[2018-07-08 14:00] VITALS: BP 139/71
[2018-07-08] MEDS ORDERED: RIVAROXABAN 10 MG TAB (XARELTO) PO SCH (18:00)
== END 2018-07-08 19:30 | disposition home or self-care (01) | DRG 470 ==
LOC: M OR 10:30 → M MS5PR 17:10
PROVIDERS: ADMIT Orthopaedic Surgery; ATTEND Orthopaedic Surgery
PROC: 0SRD0J9 Replacement of Left Knee Joint with Synthetic Substitute, Cemented, Open Approach (ICD-10-PCS; principal; 2018-07-07 13:30)
DX: M17.12 Unilateral primary osteoarthritis, left knee (principal); Z68.42 Body mass index [BMI] 45.0-49.9, adult; I10 Essential (primary) hypertension; G47.33 Obstructive sleep apnea (adult) (pediatric); E66.01 Morbid (severe) obesity due to excess calories; E11.9 Type 2 diabetes mellitus without complications; E78.5 Hyperlipidemia, unspecified; I87.2 Venous insufficiency (chronic) (peripheral); Z79.84 Long term (current) use of oral hypoglycemic drugs; Z79.899 Other long term (current) drug therapy; Z96.651 Presence of right artificial knee joint; Z79.891 Long term (current) use of opiate analgesic